=== PATIENT | male | born 1975 | race Caucasian/White ===

== ENCOUNTER 2017-04-08 22:03 | Inpatient (IN) | payer SELFPAY ==
[~2017-04-08] VITALS: Ht 165.1 cm; Wt 53.5 kg
--- NOTE | ~2017-04-08 | HP ---
Unit #: [id number] #: [id number] Patient: JOSE R EPPE [id number] [place] [address] [id number] MR#: [id number] NAME: JOSE R PEPE ROOM: [facility] Age: 41 Sex: M Admission Date: 04/09/2017 : 1975 Attending Physician: Leodan Maurer M.D. Admitting Physician: Leodan Maurer M.D. Primary Care Physician: Primary Care Physician No HISTORY AND PHYSICAL NOTE John is a 41 year old who was admitted and discharged within the first 24 hour. He was not seen for an H and P. Dictated by... Chris Quiles/caterina TD: 04/10/2017 14:48 JOB #: [id number] HISTORY AND PHYSICAL Page 1 of 1 X Fatmata Vázquez X HISTORY AND PHYSICAL
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
--- NOTE | ~2017-04-08 | DS ---
Unit #: [id number] #: [id number] Patient: JOSE R PEPE [id number] [facility] [address] [place] [address] [id number] I MR#: [id number] NAME: JOSE R PEPE ROOM: [facility] Age: 41 Sex: M Admission Date: 04/09/2017 : 1975 Discharge Date: 04/09/2017 Attending Physician: Leodan Maurer M.D. Primary Care Physician: Primary Care Physician No DISCHARGE SUMMARY REASON FOR ADMISSION The patient is a 41-year-old homeless white male admitted to the [address] [place] [address] Unit in transfer from [facility] where he had presented claiming to be suicidal. HOSPITAL COURSE The patient was admitted in transfer from [facility]. The patient is on suicide precautions when evaluated by this physician on the afternoon of 04/09/2017. The patient denied suicidal ideation stating that he had made contact with his family in [place], [place], and that he felt ready to go home. At that point, he denied suicidal ideation but was not felt to meet criteria for involuntary hospitalization, and discharge was ordered. While there seemed to be some significant inconsistencies in the patient's report he was not felt to meet criteria for involuntary hospitalization, and discharge was ordered. FINAL DIAGNOSIS Depressive disorder, unspecified. DISPOSITION ON DISCHARGE No psychotropic or other medications were ordered at the time of discharge. FOLLOWUP Followup will take place through the auspices of community mental health resources. PROGNOSIS Considered fair. Dictated by... Leodan Maurer M.D. CB/caterina TD: 04/10/2017 09:40 JOB #: [id number] Unit #: [id number] #: [id number] Patient: JOSE R PEPE DISCHARGE SUMMARY Page 1 of 1 X Leodan Maurer MD X DISCHARGE SUMMARY
== END 2017-04-09 15:10 | disposition home or self-care (01) | DRG 881 ==
LOC: P1S 04-09 02:14
DX: F32.9 Major depressive disorder, single episode, unspecified (principal); Z88.0 Allergy status to penicillin; Z91.5 Personal history of self-harm; Z59.0 Homelessness

== ENCOUNTER 2017-04-27 09:32 | Inpatient (IN) | payer OTHER ==
[~2017-04-27] VITALS: Ht 172.7 cm; Wt 56.7 kg
--- NOTE | ~2017-04-27 | HP ---
Unit #: [id number] #: [id number] Patient: JOHN PEPE [id number] [facility] [address] [place] [address] [id number] I MR#: [id number] NAME: JOHN PEPE ROOM: [facility] Age: 41 Sex: M Admission Date: 04/27/2017 : 1975 Attending Physician: Leodan Maurer M.D. Admitting Physician: Leodan Maurer M.D. Primary Care Physician: Primary Care Physician No HISTORY AND PHYSICAL HISTORY OF PRESENT ILLNESS John is a 41 year old, who was admitted and discharged within the first twenty-four hours. He was not seen for a history and physical. Dictated by... Fatmata Vázquez P.A.-C. for Maryjo Goodwin/norris TD: 04/29/2017 05:35 JOB #: [id number] HISTORY AND PHYSICAL Page 1 of 1 X Fatmata Vázquez X HISTORY AND PHYSICAL
--- NOTE | ~2017-04-27 | DS ---
Unit #: [id number] #: [id number] Patient: ADARSH PEPE [id number] [facility] [address] [place] [address] [id number] I MR#: [id number] NAME: ADARSH PEPE. ROOM: [facility] Age: 41 Sex: M Admission Date: 04/27/2017 : 1975 Discharge Date: 04/28/2017 Attending Physician: Leodan Maurer M.D. Primary Care Physician: Primary Care Physician No DISCHARGE SUMMARY JOB NOTE: VERIFY MRN. REASON FOR ADMISSION The patient is a 41-year-old white male, admitted to the [address] [place] [address] unit after he had presented to this facility claiming to be suicidal. HOSPITAL COURSE The patient was admitted to the [address] [place] [address] unit and placed on suicide precautions. No psychotropic or other medications were ordered during the patient's brief time in the hospital. By 04/28/2017, the patient claimed that he had made arrangements to return to his hometown at [place], [place] stating that he had an airline flight at 8:00 p.m. this evening to that end. This physician had great doubts as to the the veracity of this statement. The patient was not felt to meet criteria for involuntary hospitalization. As per his request, discharge was ordered. FINAL DIAGNOSIS Depressive disorder, unspecified; malingering. DISPOSITION ON DISCHARGE No medications or other psychotropic followup arranged for the patient. FOLLOWUP Followup will take place through the auspices of community mental health resources. PROGNOSIS The patient's prognosis is considered fair. Dictated by... Leodan Maurer M.D. CB/rui TD: 04/28/2017 15:56 JOB #: [id number] Unit #: [id number] #: [id number] Patient: ADARSH PEPE DISCHARGE SUMMARY Page 1 of 1 X Leodan Maurer MD X DISCHARGE SUMMARY
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
[2017-04-28 09:53] LABS: BILIRUBIN,TOTAL 0.8 mg/dL (0.2-2.0); BUN/CREATININE RATIO 19.09; CALCIUM SERUM 9.5 mg/dL (8.4-10.2); CREATININE SERUM 1.1 mg/dL (0.6-1.4); GLOM FILT RATE Estimated 82.4 mL/min (>60); POTASSIUM 4.7 mmol/L (3.5-5.1); PROTEIN TOTAL SERUM 6.7 g/dL (6.0-8.3)
[2017-04-28 10:04] LABS: BASOPHIL% 0.3 % (0-2.5); EOSINOPHIL# 0.2 X10e3 (0-0.7); EOSINOPHIL% 2.1 % (0.0-7.0); HEMATOCRIT 39.8 % (38.0-50.0); HEMOGLOBIN 13.6 gm/dL (13.0-16.0); LYMPHOCYTE% 52.9 % (17.0-45.0); MEAN CELL VOLUME 89.7 FL (83-96); MEAN CORPUSCULAR HEMOGLOBIN 30.6 PG (28-34); MEAN CORPUSCULAR HGB CONC 34.1 g/dL (30-36); MEAN PLATELET VOLUME 8.1 FL (6.5-11.5); MONOCYTE# 0.5 X10e3 (0-1.0); NEUTROPHIL# 2.8 X10e3 (1.5-7.1); NEUTROPHIL% 37.7 % (40-75); PLATELET COUNT 251 X10e3 (140-420); RED BLOOD COUNT 4.44 X10e (3.90-5.60); RED CELL DISTRIBUTION WIDTH 14.1 % (11.0-15.5); WHITE BLOOD COUNT 7.5 X10e3 (4.0-10.5)
[2017-04-28 10:19] LABS: DIFF IND YES
[2017-04-28 10:53] LABS: PLATELET ESTIMATE NORMAL (NORMAL)
== END 2017-04-28 15:36 | disposition home or self-care (01) | DRG 881 ==
LOC: P1S 16:54
PROVIDERS: Specialist
DX: F32.9 Major depressive disorder, single episode, unspecified (principal); Z76.5 Malingerer [conscious simulation]
CPT/HCPCS: 80053; 85025